=== PATIENT | female | born 1970 | race Caucasian/White ===

== ENCOUNTER 2018-05-18 15:13 | Inpatient (IN) | payer OTHER ==
[~2018-05-18] VITALS: Ht 175.3 cm; Wt 64.4 kg
[2018-05-18 16:47] LABS: BASOPHILS % 0.9 % (0.0-1.0); EOSINOPHILS # (AUTO) 0.1 (0.0-0.4); EOSINOPHILS % 2.7 % (0.0-6.0); HEMATOCRIT 31.2 % (34.2-44.1); HEMOGLOBIN 10.3 g/dL (12.0-16.0); LYMPHOCYTES # (AUTO) 0.4 (1.0-3.2); LYMPHOCYTES % 12.8 % (18.0-39.1); MEAN CORPUSCULAR HEMOGLOBIN 34.9 pg (28-32); MEAN CORPUSCULAR VOLUME 105.8 fL (81-99); MONOCYTES # (AUTO) 0.5 (0.2-0.8); MONOCYTES % 14.9 % (4.4-11.3); NEUTROPHILS # (AUTO) 2.1 (2.1-6.9); NEUTROPHILS % 62.7 % (38.7-80.0); PLATELET COUNT 259 x10e3/uL (140-360); RED BLOOD COUNT 2.95 x10e6/uL (3.6-5.1); RED CELL DISTRIBUTION WIDTH 12.2 % (11.7-14.4)
[2018-05-18 16:53] LABS: INR 1.01; PARTIAL THROMBOPLASTIN TIME 29.5 seconds (23.8-35.5); PROTHROMBIN TIME 12.5 seconds (11.9-14.5)
[2018-05-18 17:00] LABS: ALANINE AMINOTRANSFERASE 15 IU/L (0-55); ALBUMIN 3.6 g/dL (3.5-5.0); ALBUMIN/GLOBULIN RATIO 1.2 (0.8-2.0); ALKALINE PHOSPHATASE 74 IU/L (40-150); ANION GAP 15.5 mmol/L (8-16); BLOOD UREA NITROGEN 8 mg/dL (7-26); BUN/CREATININE RATIO 11 (6-25); CALCIUM 9.2 mg/dL (8.4-10.2); CARBON DIOXIDE 26 mmol/L (22-29); CHLORIDE 101 mmol/L (98-107); CREATINE KINASE 75 IU/L (29-168); CREATININE, SERUM 0.71 mg/dL (0.57-1.11); EST GLOMERULAR FILTRATION RATE > 60 ML/MIN (60-); GLUCOSE 102 mg/dL (74-118); POTASSIUM 4.5 mmol/L (3.5-5.1); SODIUM 138 mmol/L (136-145)
--- NOTE | 2018-05-18 17:01 | Diagnostic Imaging Report ---
EXAM: XR CHEST 2 VIEWS DATE: 05/18/2018 3:32 PM INDICATION: Fever/cough COMPARISON: None FINDINGS: Lines and Tubes: None Heart and Mediastinum: No acute cardiomediastinal findings. Lungs and Pleura: Hazy opacities overlying the mid lungs corresponds with overlying breast prostheses. There is minimal biapical scarring. There is a nodular density in the medial aspect of the left midlung measuring 12 mm, likely representing a vessel viewed en face. Additional retrocardiac opacity noted on the left. Bones and Soft Tissues: No acute findings. IMPRESSION: 1. Retrocardiac opacity on the left. Given history, correlation for pneumonia. 2. 12 mm nodular density left midlung likely vessel viewed en face. Follow-up radiograph for weeks. If findings persist, CT chest would be recommended. Signed by: Dr. Lamberto Jacome MD on 05/18/2018 4:57 PM
[2018-05-18 17:19] LABS: THYROID STIMULATING HORMONE 0.053 uIU/mL (0.350-4.940)
[2018-05-18] MEDS ORDERED: IBUPROFEN 600 MG TAB PO STA (17:45)
[2018-05-18 18:00] LABS: CLARITY,URINE HAZY (CLEAR); COLOR,URINE YELLOW (YELLOW); LEUKOCYTE ESTERASE ,URINE NEGATIVE (NEGATIVE); NITRITE,URINE NEGATIVE (NEGATIVE)
[2018-05-18] MEDS: CEFEPIME HCL 1 GM VIAL IV SCH (18:00)
[2018-05-18 18:01] LABS: BILIRUBIN,URINE NEGATIVE (NEGATIVE); KETONES,URINE NEGATIVE (NEGATIVE); PROTEIN,URINE DIPSTICK TRACE (NEGATIVE); URINE UROBILINOGEN 0.2 mg/dL (0.2 - 1)
[2018-05-18 18:13] LABS: BACTERIA,URINE FEW /HPF; EPITHELIAL CELLS,URINE MODERATE /LPF; RBC,URINE 0-5 /HPF (0-5); WBC,URINE (MAN) 0-5 /HPF (0-5)
[2018-05-18] MEDS: ALBUTEROL SULF 0.083% NEB SOLN 3 ML NEB NEB SCH ×2 (19:30→23:00)
[2018-05-18] MEDS: AZITHROMYCIN 500MG/SOD CHL 0.9% 250ML BAG IV SCH (19:34)
[2018-05-18] MEDS: SODIUM CHLORIDE 0.9% 1000ML 1,000 ML IV SCH (19:34)
[2018-05-18] MEDS ORDERED: ACETAMINOPHEN 1000 MG/100 ML IV PRN (21:15)
[2018-05-18 21:40] VITALS: BP 106/58
[2018-05-18 22:06] VITALS: BP 106/58
[2018-05-18] MEDS: VANCOMYCIN 1GM/NS 250 ML 250 ML IV SCH (22:33)
[2018-05-18] MEDS ORDERED: METHYLPREDNISOLONE SOD SUCC 40 MG/ML VIAL IV ONE (23:15)
[2018-05-18] MEDS ORDERED: HYDRALAZINE HCL 20 MG/ML VIAL IV PRN (23:15)
[2018-05-18] MEDS ORDERED: HYDROCODONE/APAP 5MG-325MG TAB PO PRN (23:15)
[2018-05-18] MEDS ORDERED: TRAMADOL HCL 50 MG TAB PO PRN (23:15)
[2018-05-18] MEDS ORDERED: ACETAMINOPHEN 325 MG TAB PO PRN (23:15)
[2018-05-18 23:34] VITALS: BP 106/58
[2018-05-18 23:50] VITALS: BP 91/54
[2018-05-19] MEDS: IPRATROPIUM BROMIDE 0.02% 2.5 ML NEB NEB SCH ×5 (01:00→19:20)
[2018-05-19] MEDS: PIPER-TAZ 3.375 GM 50 ML IV SCH ×4 (01:12→17:47)
[2018-05-19] MEDS: CEFEPIME HCL 1 GM VIAL IV SCH ×4 (01:12→22:00)
[2018-05-19] MEDS ORDERED: METHYLPREDNISOLONE SOD SUCC 40 MG/ML VIAL ONE (02:35)
[2018-05-19] MEDS: ALBUTEROL SULF 0.083% NEB SOLN 3 ML NEB NEB SCH ×5 (03:00→19:20)
[2018-05-19] MEDS: SODIUM CHLORIDE 0.9% 1000ML 1,000 ML IV SCH ×3 (03:14→22:30)
[2018-05-19 04:00] VITALS: BP 102/54
[2018-05-19 05:49] LABS: BASOPHILS % 0.5 % (0.0-1.0); EOSINOPHILS # (AUTO) 0.2 (0.0-0.4); EOSINOPHILS % 9.7 % (0.0-6.0); HEMATOCRIT 29.4 % (34.2-44.1); HEMOGLOBIN 9.3 g/dL (12.0-16.0); LYMPHOCYTES # (AUTO) 0.3 (1.0-3.2); LYMPHOCYTES % 12.6 % (18.0-39.1); MEAN CORPUSCULAR HEMOGLOBIN 34.1 pg (28-32); MEAN CORPUSCULAR HGB CONC 31.6 g/dL (31-35); MEAN CORPUSCULAR VOLUME 107.7 fL (81-99); MONOCYTES # (AUTO) 0.1 (0.2-0.8); MONOCYTES % 6.8 % (4.4-11.3); NEUTROPHILS # (AUTO) 1.3 (2.1-6.9); NEUTROPHILS % 62.6 % (38.7-80.0); PLATELET COUNT 230 x10e3/uL (140-360); RED BLOOD COUNT 2.73 x10e6/uL (3.6-5.1); RED CELL DISTRIBUTION WIDTH 12.2 % (11.7-14.4)
[2018-05-19 06:17] LABS: ANION GAP 12.1 mmol/L (8-16); BLOOD UREA NITROGEN 12 mg/dL (7-26); BUN/CREATININE RATIO 19 (6-25); CALCIUM 8.7 mg/dL (8.4-10.2); CARBON DIOXIDE 25 mmol/L (22-29); CHLORIDE 109 mmol/L (98-107); CREATININE, SERUM 0.64 mg/dL (0.57-1.11); EST GLOMERULAR FILTRATION RATE > 60 ML/MIN (60-); GLUCOSE 134 mg/dL (74-118); POTASSIUM 4.1 mmol/L (3.5-5.1); SODIUM 142 mmol/L (136-145)
--- NOTE | 2018-05-19 06:18 | Diagnostic Imaging Report ---
CHEST SINGLE (PORTABLE), 05/19/2018 5:00 AM Technique: CHEST SINGLE (PORTABLE) Comparison: None available. Clinical history: 05/18/2018 Findings: Stable appearance of the heart, mediastinum, lungs and pleural spaces. Impression: 1. Unchanged left lower lobe pneumonia. 2. Stable nodular density projecting over the left midlung, possibly vascular. Continued attention on follow-up. Signed by: Dr Loly Darby MD on 05/19/2018 6:15 AM
[2018-05-19 07:21] LABS: BAND NEUTROPHILS % (MANUAL) 2 %; EOSINOPHILS % (MANUAL) 12 % (0-7); LYMPHOCYTES % (MANUAL) 10 % (19-48); MONOCYTES % (MANUAL) 3 % (3.4-9.0); NEUTROPHILS % (MANUAL) 72 % (40-74)
[2018-05-19 07:23] LABS: PLATELET ESTIMATE ADEQUATE; PLATELET MORPHOLOGY COMMENT NORMAL
[2018-05-19 07:24] LABS: ANISOCYTOSIS SLIGHT; HYPOCHROMASIA SLIGHT; RBC MORPHOLOGY COMMENT NORMAL
[2018-05-19 08:00] VITALS: BP 104/58
[2018-05-19] MEDS: VANCOMYCIN 1GM/NS 250 ML 250 ML IV SCH ×2 (08:43→21:00)
[2018-05-19] MEDS ORDERED: VANCOMYCIN HCL 1GM/NS 250 ML BAG IV SCH (09:00)
[2018-05-19] MEDS ORDERED: SYNTHROID125 MCG PO (10:36)
[2018-05-19] MEDS ORDERED: ATIVAN2 MG PO (10:36)
[2018-05-19] MEDS ORDERED: OXYCONTIN10 MG PO (10:36)
[2018-05-19] MEDS ORDERED: OXYCODONE-ACET1 EAC1 PO (10:36)
[2018-05-19] MEDS ORDERED: VALTREX500 MG PO (10:36)
[2018-05-19] MEDS ORDERED: SINGULAIR10 MG PO (10:36)
[2018-05-19 12:03] VITALS: BP 114/69
[2018-05-19] MEDS: FILGRASTIM 300 MCG/ML VIAL SC SCH (12:10)
[2018-05-19] MEDS ORDERED: FLUOCINONIDE-E15 GM TOP (13:21)
[2018-05-19] MEDS: BENZONATATE 100 MG CAP PO SCH ×2 (14:59→21:05)
[2018-05-19] MEDS ORDERED: ONDANSETRON HCL INJ 2 MG/ML VIAL IV PRN (15:00)
[2018-05-19 15:59] VITALS: BP 102/56
[2018-05-19] MEDS ORDERED: OXYCODONE HCL IR 5 MG TAB PO SCH (17:00)
[2018-05-19 20:00] VITALS: BP 111/63
[2018-05-19] MEDS: OXYCODONE HCL 10 MG TAB CR PO SCH ×2 (21:00→22:08)
[2018-05-19] MEDS: AZITHROMYCIN 500MG/SOD CHL 0.9% 250ML BAG IV SCH (21:05)
[2018-05-19] MEDS: FLUOCINONIDE 0.05% 1 EA/15 GM TUBE TOP SCH (22:10)
[2018-05-19] MEDS: OXYCODONE/ACETAMINOPHEN 5-325 1 EACH TABLET PO PRN (23:25)
[2018-05-20] VITALS (7 sets, daily range): BP systolic 96–121; BP diastolic 54–67
[2018-05-20] MEDS: ALBUTEROL SULF 0.083% NEB SOLN 3 ML NEB NEB SCH ×7 (03:00→23:00)
[2018-05-20] MEDS: SODIUM CHLORIDE 0.9% 1000ML 1,000 ML IV SCH ×3 (04:09→19:14)
[2018-05-20 06:11] LABS: BASOPHILS % 0.9 % (0.0-1.0); EOSINOPHILS # (AUTO) 0.1 (0.0-0.4); HEMATOCRIT 26.4 % (34.2-44.1); HEMOGLOBIN 8.4 g/dL (12.0-16.0); LYMPHOCYTES # (AUTO) 0.4 (1.0-3.2); LYMPHOCYTES % 10.9 % (18.0-39.1); MEAN CORPUSCULAR HEMOGLOBIN 34.3 pg (28-32); MEAN CORPUSCULAR HGB CONC 31.8 g/dL (31-35); MEAN CORPUSCULAR VOLUME 107.8 fL (81-99); MONOCYTES # (AUTO) 0.4 (0.2-0.8); MONOCYTES % 12.7 % (4.4-11.3); NEUTROPHILS # (AUTO) 1.8 (2.1-6.9); PLATELET COUNT 184 x10e3/uL (140-360); RED BLOOD COUNT 2.45 x10e6/uL (3.6-5.1); RED CELL DISTRIBUTION WIDTH 12.1 % (11.7-14.4)
[2018-05-20] MEDS: PIPER-TAZ 3.375 GM 50 ML IV SCH ×4 (06:16→17:24)
[2018-05-20] MEDS: CEFEPIME HCL 1 GM VIAL IV SCH ×3 (06:16→22:00)
[2018-05-20] MEDS: LEVOTHYROXINE SODIUM 25 MCG TABLET PO SCH (06:16)
[2018-05-20] MEDS: LEVOTHYROXINE SODIUM 112 MCG TAB PO SCH (06:16)
[2018-05-20] MEDS ORDERED: LEVOTHYROXINE SODIUM 125 MCG TAB PO SCH (06:30)
[2018-05-20 06:43] LABS: ANION GAP 10.9 mmol/L (8-16); BLOOD UREA NITROGEN 11 mg/dL (7-26); BUN/CREATININE RATIO 17 (6-25); CALCIUM 8.3 mg/dL (8.4-10.2); CARBON DIOXIDE 27 mmol/L (22-29); CHLORIDE 109 mmol/L (98-107); CREATININE, SERUM 0.63 mg/dL (0.57-1.11); EST GLOMERULAR FILTRATION RATE > 60 ML/MIN (60-); GLUCOSE 112 mg/dL (74-118); MAGNESIUM 1.5 MG/DL (1.3-2.1); POTASSIUM 3.9 mmol/L (3.5-5.1); SODIUM 143 mmol/L (136-145)
[2018-05-20] MEDS: IPRATROPIUM BROMIDE 0.02% 2.5 ML NEB NEB SCH ×4 (07:00→19:37)
[2018-05-20 07:02] LABS: FREE THYROXINE INDEX 2.2642 (1.4-3.8); THYROID STIMULATING HORMONE 0.152 uIU/mL (0.350-4.940)
[2018-05-20 07:44] LABS: BAND NEUTROPHILS % (MANUAL) 5 %; EOSINOPHILS % (MANUAL) 3 % (0-7); LYMPHOCYTES % (MANUAL) 13 % (19-48); METAMYELOCYTES % (MANUAL) 2 % (0-0); MONOCYTES % (MANUAL) 11 % (3.4-9.0); MYELOCYTES % (MANUAL) 1 % (0-0); NEUTROPHILS % (MANUAL) 58 % (40-74)
[2018-05-20 07:45] LABS: ANISOCYTOSIS SLIGHT; HYPOCHROMASIA SLIGHT; PLATELET ESTIMATE ADEQUATE; PLATELET MORPHOLOGY COMMENT NORMAL; POIKILOCYTOSIS SLIGHT; RBC MORPHOLOGY COMMENT NORMAL
[2018-05-20] MEDS: FLUOCINONIDE 0.05% 1 EA/15 GM TUBE TOP SCH ×3 (09:00→21:25)
[2018-05-20] MEDS: OXYCODONE HCL 10 MG TAB CR PO SCH ×2 (09:00→21:24)
[2018-05-20] MEDS: BENZONATATE 100 MG CAP PO SCH ×3 (09:00→21:24)
[2018-05-20] MEDS: VANCOMYCIN 1GM/NS 250 ML 250 ML IV SCH ×2 (09:00→21:24)
[2018-05-20] MEDS: FILGRASTIM 300 MCG/ML VIAL SC SCH (09:00)
[2018-05-20] MEDS ORDERED: ACETAMINOPHEN 325 MG TAB PO PRN (13:00)
[2018-05-20] MEDS: OXYCODONE/ACETAMINOPHEN 5-325 1 EACH TABLET PO PRN (15:17)
[2018-05-20] MEDS: PREDNISONE 20 MG TAB PO SCH (17:24)
[2018-05-20] MEDS: AZITHROMYCIN 500MG/SOD CHL 0.9% 250ML BAG IV SCH (20:30)
[2018-05-21] VITALS (9 sets, daily range): BP systolic 104–121; BP diastolic 55–71
[2018-05-21] MEDS: IPRATROPIUM BROMIDE 0.02% 2.5 ML NEB NEB SCH ×4 (01:00→19:14)
[2018-05-21] MEDS: ALBUTEROL SULF 0.083% NEB SOLN 3 ML NEB NEB SCH ×6 (03:00→23:00)
[2018-05-21 05:57] LABS: BASOPHILS % 0.8 % (0.0-1.0); HEMATOCRIT 26.8 % (34.2-44.1); HEMOGLOBIN 8.7 g/dL (12.0-16.0); LYMPHOCYTES # (AUTO) 0.5 (1.0-3.2); LYMPHOCYTES % 10.9 % (18.0-39.1); MEAN CORPUSCULAR HEMOGLOBIN 34.4 pg (28-32); MEAN CORPUSCULAR HGB CONC 32.5 g/dL (31-35); MEAN CORPUSCULAR VOLUME 105.9 fL (81-99); MONOCYTES # (AUTO) 0.6 (0.2-0.8); MONOCYTES % 12.1 % (4.4-11.3); NEUTROPHILS # (AUTO) 2.6 (2.1-6.9); NEUTROPHILS % 53.9 % (38.7-80.0); PLATELET COUNT 212 x10e3/uL (140-360); RED BLOOD COUNT 2.53 x10e6/uL (3.6-5.1); RED CELL DISTRIBUTION WIDTH 12.1 % (11.7-14.4)
[2018-05-21 06:27] LABS: ANION GAP 9.6 mmol/L (8-16); BLOOD UREA NITROGEN 9 mg/dL (7-26); BUN/CREATININE RATIO 16 (6-25); CALCIUM 8.7 mg/dL (8.4-10.2); CARBON DIOXIDE 26 mmol/L (22-29); CHLORIDE 106 mmol/L (98-107); CREATININE, SERUM 0.57 mg/dL (0.57-1.11); EST GLOMERULAR FILTRATION RATE > 60 ML/MIN (60-); GLUCOSE 104 mg/dL (74-118); MAGNESIUM 1.6 MG/DL (1.3-2.1); POTASSIUM 3.6 mmol/L (3.5-5.1); SODIUM 138 mmol/L (136-145)
[2018-05-21] MEDS: SODIUM CHLORIDE 0.9% 1000ML 1,000 ML IV SCH ×3 (06:37→20:34)
[2018-05-21] MEDS: LEVOTHYROXINE SODIUM 25 MCG TABLET PO SCH (06:37)
[2018-05-21] MEDS: PIPER-TAZ 3.375 GM 50 ML IV SCH ×2 (06:37)
[2018-05-21] MEDS: LEVOTHYROXINE SODIUM 112 MCG TAB PO SCH (06:37)
[2018-05-21] MEDS: CEFEPIME HCL 1 GM VIAL IV SCH ×3 (06:37→22:37)
[2018-05-21 09:27] LABS: BAND NEUTROPHILS % (MANUAL) 7 %; LYMPHOCYTES % (MANUAL) 17 % (19-48); MONOCYTES % (MANUAL) 9 % (3.4-9.0); MYELOCYTES % (MANUAL) 1 % (0-0); NEUTROPHILS % (MANUAL) 64 % (40-74)
[2018-05-21 09:28] LABS: HYPOCHROMASIA MODERATE; PLATELET ESTIMATE ADEQUATE; PLATELET MORPHOLOGY COMMENT NORMAL; RBC MORPHOLOGY COMMENT NORMAL
[2018-05-21 09:29] LABS: ANISOCYTOSIS SLIGHT; POIKILOCYTOSIS SLIGHT
[2018-05-21] MEDS ORDERED: FILGRASTIM 300 MCG/ML VIAL SC ONE (09:30)
[2018-05-21] MEDS: PREDNISONE 20 MG TAB PO SCH ×2 (09:31→17:37)
[2018-05-21] MEDS: GUAIFENESIN 600MG/DEXTROMETHORPHAN 30MG TABSR PO SCH ×2 (09:31→17:37)
[2018-05-21] MEDS: FLUOCINONIDE 0.05% 1 EA/15 GM TUBE TOP SCH ×3 (09:31→20:33)
[2018-05-21] MEDS: BENZONATATE 100 MG CAP PO SCH ×3 (09:31→20:32)
[2018-05-21] MEDS: OXYCODONE HCL 10 MG TAB CR PO SCH ×2 (09:31→20:32)
[2018-05-21] MEDS: FILGRASTIM 300 MCG/ML VIAL SC SCH (09:54)
[2018-05-21] MEDS: OXYCODONE/ACETAMINOPHEN 5-325 1 EACH TABLET PO PRN ×2 (14:16→22:43)
[2018-05-21] MEDS: AZITHROMYCIN 500MG/SOD CHL 0.9% 250ML BAG IV SCH (20:32)
[2018-05-22] VITALS: BP 113/78
[2018-05-22 00:42] VITALS: BP 113/78
[2018-05-22] MEDS: IPRATROPIUM BROMIDE 0.02% 2.5 ML NEB NEB SCH ×2 (01:00→07:50)
[2018-05-22] MEDS: ALBUTEROL SULF 0.083% NEB SOLN 3 ML NEB NEB SCH ×3 (03:00→11:55)
[2018-05-22 04:00] VITALS: BP 117/70
[2018-05-22 05:38] LABS: BASOPHILS % 0.6 % (0.0-1.0); HEMATOCRIT 28.5 % (34.2-44.1); LYMPHOCYTES # (AUTO) 0.6 (1.0-3.2); LYMPHOCYTES % 11.4 % (18.0-39.1); MEAN CORPUSCULAR HEMOGLOBIN 33.8 pg (28-32); MEAN CORPUSCULAR HGB CONC 31.6 g/dL (31-35); MEAN CORPUSCULAR VOLUME 107.1 fL (81-99); MONOCYTES # (AUTO) 0.7 (0.2-0.8); MONOCYTES % 13.6 % (4.4-11.3); NEUTROPHILS # (AUTO) 2.2 (2.1-6.9); NEUTROPHILS % 45.7 % (38.7-80.0); PLATELET COUNT 214 x10e3/uL (140-360); RED BLOOD COUNT 2.66 x10e6/uL (3.6-5.1); RED CELL DISTRIBUTION WIDTH 12.2 % (11.7-14.4)
[2018-05-22 06:02] LABS: ANION GAP 11.8 mmol/L (8-16); BLOOD UREA NITROGEN 8 mg/dL (7-26); BUN/CREATININE RATIO 15 (6-25); CALCIUM 8.7 mg/dL (8.4-10.2); CARBON DIOXIDE 25 mmol/L (22-29); CHLORIDE 108 mmol/L (98-107); CREATININE, SERUM 0.54 mg/dL (0.57-1.11); EST GLOMERULAR FILTRATION RATE > 60 ML/MIN (60-); GLUCOSE 102 mg/dL (74-118); MAGNESIUM 1.7 MG/DL (1.3-2.1); POTASSIUM 3.8 mmol/L (3.5-5.1); SODIUM 141 mmol/L (136-145)
[2018-05-22 06:16] LABS: FERRITIN 239.11 ng/mL (4.63-204.00)
[2018-05-22] MEDS: LEVOTHYROXINE SODIUM 25 MCG TABLET PO SCH (06:46)
[2018-05-22] MEDS: CEFEPIME HCL 1 GM VIAL IV SCH (06:46)
[2018-05-22] MEDS: LEVOTHYROXINE SODIUM 112 MCG TAB PO SCH (06:46)
[2018-05-22] MEDS: SODIUM CHLORIDE 0.9% 1000ML 1,000 ML IV SCH (06:46)
[2018-05-22 07:25] VITALS: BP 120/76
[2018-05-22 07:28] LABS: FOLATE 8.9 ng/mL (7.0-15.4)
[2018-05-22 07:58] VITALS: BP 120/76
[2018-05-22] MEDS: GUAIFENESIN 600MG/DEXTROMETHORPHAN 30MG TABSR PO SCH (09:03)
[2018-05-22] MEDS: OXYCODONE HCL 10 MG TAB CR PO SCH (09:04)
[2018-05-22] MEDS: BENZONATATE 100 MG CAP PO SCH (09:04)
[2018-05-22] MEDS: FLUOCINONIDE 0.05% 1 EA/15 GM TUBE TOP SCH (09:04)
[2018-05-22] MEDS: PREDNISONE 20 MG TAB PO SCH (09:04)
[2018-05-22] MEDS ORDERED: CEFTIN PO (09:25)
[2018-05-22] MEDS ORDERED: TESSALON PERLE100 MG PO (09:25)
[2018-05-22] MEDS ORDERED: MUCINEX DM ER1 EACH PO (09:25)
[2018-05-22] MEDS ORDERED: PREDNISONE20 MG PO (09:28)
[2018-05-22] MEDS ORDERED: FLUCONAZOLE100 MG PO (09:34)
[2018-05-22] MEDS ORDERED: FLUCONAZOLE 200 MG/100 ML 100 ML IV ONE (09:45)
[2018-05-22] MEDS ORDERED: AZITHROMYCIN 500MG/NS 250 ML 250 ML IV ONE (10:15)
[2018-05-22 11:33] VITALS: BP 126/81
[2018-05-22] MEDS: OXYCODONE/ACETAMINOPHEN 5-325 1 EACH TABLET PO PRN (11:47)
--- NOTE | 2018-05-22 20:48 | Discharge Summary ---
ADMITTING DIAGNOSES 1. Pneumonia. 2. Hypothyroidism. 3. Nerve and soft tissue damage secondary to cancer treatments. 4. Hypertension. 5. Urinary tract infection. 6. Eczema. DISCHARGE DIAGNOSES 1. Pneumonia. 2. Hypothyroidism. 3. Nerve and soft tissue damage secondary to cancer treatments. 4. Hypertension. 5. Urinary tract infection. 6. Eczema. HISTORY: The patient has a history of thyroid cancer with resection, lymphoma times 2, hypothyroidism and eczema. Surgical history of thyroidectomy. Noncontributory family history and social history. HOSPITAL COURSE: This is a 48-year-old female with 1-month history of worsening shortness of breath, cough, congestion, and fever. The patient was started on antibiotics by her oncologist but says it did not improve. The patient had a fever of 101.6 at home, which prompted her to go to the ER. On admission, the patient was started on vancomycin, Zosyn, Zithromax, and cefepime secondary to the patient being immunocompromised. The patient was started on DuoNeb and IV steroids as well. Home meds for hypothyroidism. Chest x-ray on admission showed retrocardiac opacity on the left, a 12-mm nodular density in the left mid lung likely a vessel . Blood cultures were negative. Urine culture was positive for staph. Sputum culture was positive for yeast. Flu negative. Stool for blood was negative. The patient continued Zithromax and cefepime during the hospitalization. Vancomycin and Zosyn were discontinued once the sputum culture came back. The patient was also given fluconazole IV. The patient is feeling much better after a couple of days of antibiotics. She will discharge home with Ceftin for 3 days, prednisone taper, Mucinex and Tessalon as well as fluconazole for 10 days. She will follow up with primary care in 1 to 2 weeks. Vital signs are stable, and the patient is afebrile. The patient says she is feeling much better and is ready to go home. Dictated by: Radha Gorman NP JAVID CASILLAS MD Job#: [id number]
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
--- OUTSIDE RECORDS SUMMARY | 2018-06-12 06:51 | XMS REPORT ---
Author Author [facility] Address Unknown Phone Unavailable Care Team Providers Care Promotions Team Leader Name Role Phone JAVID CASILLAS Unavailable Unavailable Problems This patient has no known problems. Allergies, Adverse Reactions, Alerts This patient has no known allergies or adverse reactions. Medications This patient has no known medications. Results Test Description Test Time Test Comments Text Results Atomic Results Result Comments CHEST SINGLE (PORTABLE) 2018-05-19 06:14:00 [place] [address] Patient Name: CHANDRAKANT FOFANA MR #: [id number] : 1970 Age/Sex: 48/F Req #: [id number] Adm Physician: JAVID CASILLAS MD Ordered by: FARNAZ GRIMES MD Report #: [id number] Location: MED/SURG3 Room /Bed: [facility] Procedure: [id number] DX/CHEST SINGLE ( PORTABLE) Exam Date: 05/19/18 Exam Time: 0510 REPORT STATUS: Signed CHEST SINGLE (PORTABLE), 05/19/2018 5:00 AM Technique: CHEST SINGLE (PORTABLE) Comparison: None available. Clinical history: 05/18/2018 Findings: Stable appearance of the heart, mediastinum, lungs and pleural spaces. Impression: 1. Unchanged left lower lobe pneumonia. 2. Stable nodular density projecting over the left midlung, possibly vascular. Continued attention on follow-up. Signed by: Dr Román Darby MD on 05/19/2018 6:15 AM Dictated By: ROMÁN DARBY MD 4 Transcribed By: OMER on 05/19/18614 COPY TO: FARNAZ GRIMES MD CHEST 2 VIEWS 2018-05-18 16:55:00 [place] [address] Patient Name: CHANDRAKANT FOFANA MR #: [id number] : 1970 Age/Sex: 48/F Req #: [id number] Adm Physician: Ordered by: FARNAZ GRIMES MD Report #: [id number] Location: ER Room/Bed: Procedure: [id number] DX/CHEST 2 VIEWS Exam Date: Exam Time: REPORT STATUS: Signed EXAM: XR CHEST 2 VIEWS DATE: 05/18 3:32 PM INDICATION: Fever/cough COMPARISON: None FINDINGS: Lines and Tubes: None Heart and Mediastinum: No acute cardiomediastinal findings. Lungs and Pleura: Hazy opacities overlying the mid lungs corresponds with overlying breast prostheses. There is minimal biapical scarring. There is a nodular density in the medial aspect of the left midlung measuring 12 mm, likely representing a vessel viewed en face. Additional retrocardiac opacity noted on the left. Bones and Soft Tissues : No acute findings. IMPRESSION: 1. Retrocardiac opacity on the left. Given history, correlation for pneumonia. 2. 12 mm nodular density left midlung likely vessel viewed en face. Follow-up radiograph for weeks. If findings persist, CT chest would be recommended. Signed by: Dr. Lamberto Jacome MD on 05/18/2018 4:57 PM Dictated By: LAMBERTO JACOME MD 56 Transcribed By: OMER on 05/18/181656 COPY TO: FARNAZ GRIMES MD
--- OUTSIDE RECORDS SUMMARY | 2018-06-12 06:51 | XMS REPORT | Clinical Summary ---
Author Author [facility] Address Unknown Phone Unavailable Care Team Providers Care Radiation Oncologist Name Role Phone PCP Unavailable Allergies Active Allergy Reactions Severity Noted Date Comments Food Allergy Formula Shortness Of Breath, High 04/16/2014 Gluten and soy; swelling, Other (See Comments) red spots Nut products---SOB; throat closes up Other Other (See Comments) 04/16/2014 Suture; swollen, pain Current Medications Prescription Sig. Disp. Refills Start End Date Status Date levothyroxine (SYNTHROID, Take 137 mcg by mouth Active LEVOTHROID) 137 MCG daily. tablet lisdexamfetamine Take 70 mg by mouth every Active (VYVANSE) 70 MG capsule morning. HYDROcodone-acetaminophen Take 1 tablet by mouth Active (NORCO 10-325) 10-325 mg every 6 (six) hours as per tablet needed for Pain. UNKNOWN Med Name: Active ALPRAZolam (XANAX) 1 MG Take 1 mg by mouth every Active tablet night as needed for Anxiety. LACTOBACILLUS ACIDOPHILUS Take by mouth. Active (PROBIOTIC ORAL) DOCOSAHEXANOIC ACID/EPA Take by mouth. Active (FISH OIL ORAL) MIGUEL ROOT (MIGUEL Take by mouth. Active EXTRACT ORAL) GARLIC ORAL Take by mouth. Active CHOLECALCIFEROL, VITAMIN Take by mouth. Active D3, (VITAMIN D3 ORAL) aloe vera Liqd Take by mouth. Active albuterol (ACCUNEB) 0.63 Take 1 ampule by Active mg/3 mL nebulizer nebulization every 6 solution (six) hours as needed for Wheezing. Active Problems Not on file Social History Tobacco Use Types Packs/Day Years Used Date Never Smoker Smokeless Tobacco: Never Used Alcohol Use Drinks/Week oz/Week Comments No Sex Assigned at Date Recorded Not on file Last Filed Vital Signs Not on file Plan of Treatment Not on file Results Not on fileafter 05/17/2017
== END 2018-05-22 12:45 | disposition home or self-care (01) | DRG 194 ==
LOC: ER 15:13 → ERHOLD 19:21 → MED/SURG3 21:20
PROVIDERS: ADMIT Internal Medicine; ATTEND Internal Medicine
DX: J18.9 Pneumonia, unspecified organism (principal); N39.0 Urinary tract infection, site not specified; E03.9 Hypothyroidism, unspecified; G62.82 Radiation-induced polyneuropathy; L59.8 Other specified disorders of the skin and subcutaneous tissue related to radiation; L30.9 Dermatitis, unspecified; Z79.899 Other long term (current) drug therapy; D70.3 Neutropenia due to infection; Z85.850 Personal history of malignant neoplasm of thyroid; Z85.72 Personal history of non-Hodgkin lymphomas; B95.62 Methicillin resistant Staphylococcus aureus infection as the cause of diseases classified elsewhere; R84.5 Abnormal microbiological findings in specimens from respiratory organs and thorax
CPT/HCPCS: 36415; 71045; 71046; 80048; 80053; 80202; 81001; 82270; 82550; 82553; 82607; 82728; 82746; 83540; 83605; 83735; 84436; 84443; 84466; 84479; 84484; 85025; 85610; 85730; 87040; 87070; 87086; 87186; 87205; 87400; 94640; 96361; 99284; J0456; J0692; J1442; J1450; J2405; J2543; J2920; J3370; J7030; J7512